=== PATIENT | male | born 2000 | race Two or more races ===

== ENCOUNTER 2025-02-27 21:56 | Emergency (ER) | payer MEDICAID, OTHER ==
[~2025-02-27] VITALS: Ht 175.3 cm; Wt 95.4 kg
[2025-02-27 22:50] VITALS: BP 154/87; PULSE 91; TEMP 98.5
[2025-02-27] MEDS: ALBUTEROL SULF 2.5 MG/0.5ML(0.5%) NEB SOLN NEB ONE (22:50)
[2025-02-27] MEDS: IPRATROPIUM BROM 0.5 MG/2.5ML INH SOL NEB ONE (22:50)
[2025-02-27 23:10] VITALS: RESP 16; O2SAT 95
[2025-02-27] MEDS ORDERED: METH4PAK PO (23:10)
[2025-02-27] MEDS ORDERED: ALBUAER3 IN (23:10)
[2025-02-27] MEDS ORDERED: AZIT-43 PO (23:10)
--- NOTE | 2025-02-27 23:10 | ED.PDOC ---
SOB-HPI HPI Comments PT PRESENTED TO ED FOR ASTHMA REACTION X1 DAY W/O RELIEF FROM INHALER. REPORTS SHORTNESS OF BREATH DENIES DIFFICULTY BREATHING. NOTES NO FEVERS OR CHILLS DOES STATE INCREASE SPITTING UP YELLOW PHLEGM. Chief Complaint: Asthma Time Seen by MD: 22:03 Reviewed notes: Nurses Notes, Medications, Allergies Information Source: Patient Mode of Arrival: Ambulatory Past Medical History PAST MEDICAL HISTORY: Asthma Family History Family History: Unknown Social History Smoker: Non-Smoker Alcohol: Denies ETOH Use Drugs: Denies Drug Use All Other Systems: Reviewed and Negative (SEE HPI) Physical Exam General Appearance: No Apparent Distress, Normal HEENT: Normal ENT Inspection, Pharynx Normal, TMs Normal Neck: Full Range of Motion, Non-Tender Respiratory: Chest Non-Tender, No Accessory Muscle Use, No Respiratory Distress, Wheezing Cardiovascular: No Edema, No JVD, No Murmur, No Gallop, Normal Peripheral Pulses, Regular Rate/Rhythm Breast Exam: Deferred Gastrointestinal: Non Tender, Soft Genitalia: Deferred Pelvic: Deferred Rectal: Deferred Extremities: Normal range of motion, Non-tender Musculoskeletal : Apperance: Normal Neurologic: Alert, No Motor Deficits, Normal Affect, Normal Mood, No Sensory Deficits Cerebellar Function: Normal Reflexes: NOT DONE Skin: Dry, Normal Color, Warm Lymphatic: No Adenopathy Was a procedure done? Was a procedure done?: No Differential Dx Differential Diagnosis: Asthma, Bronchitis, Pneumonia, Allergic Rhinitis, URI X-Ray, Labs, Meds, VS Vital Signs Date Time Temp Pulse Resp B/P (MAP) Pulse Ox O2 Delivery O2 Flow Rate FiO2 02/27/25 23:10 95 Room Air* 0 21 02/27/25 23:10 16 95 Room Air* 0 21 02/27/25 22:50 91 18 95 Room Air 02/27/25 22:50 98.5 91 18 154/87 (109) 95 98.5 02/27/25 21:57 98.4 89 16 139/87 94 98.4 Current Medications Medications (Trade) Dose Ordered Sig/Manny Route Start Time Stop Time Status Last Admin Albuterol (Ventolin Medneb) 5 mg ONCE ONCE NEB 02/27/25 22:15 02/27/25 22:16 DC 02/27/25 22:50 Ipratropium [place] (Atrovent Medneb) 0.5 mg ONCE ONCE NEB 02/27/25 22:15 02/27/25 22:16 DC 02/27/25 22:50 Dexamethasone Sodium Phosphate (Decadron Injection) 10 mg ONCE ONCE IM 02/27/25 22:15 02/27/25 22:16 DC 02/27/25 22:50 X-Ray, Labs, Meds, VS Comment LUNG SOUNDS CLEAR AND EQUAL BILATERAL OFF A BREATHING TREATMENT X1. PATIENT GIVEN DECADRON 10 MG IM. PATIENT STATES HE FEELS BETTER REQUESTING DISCHARGE AT THIS TIME. TRIAL OF MEDROL DOSEPAK, AZITHROMYCIN, A REFILL PATIENT'S ALBUTEROL. ADVISED TO REST INCREASE P.O. FLUIDS WITH ELECTROLYTES. FOLLOW UP WITH YOUR PCP IN 2-3 DAYS NECESSARY. ER RETURN PRECAUTIONS GIVEN PATIENT INDICATES UNDERSTANDING AGREES WITH DISCHARGE PLAN OF CARE. Time of 1ST Reevaluation: 22:03 Reevaluation 1ST: Unchanged Time of 2ND Reevaluation: 23:08 Reevaluation 2ND: Improved Patient Education/Counseling: Diagnosis, Treatment, Need For Follow Up Family Education/Counseling: No Family Present SEPSIS Sepsis Screen Date sepsis recognized/suspect: Feb 27, 2025 Time Sepsis recognized/suspect: 2158 Recent Procedure: No On Antibiotic Therapy: No Respiratory Rate >20: No Heart Rate >90: No Temp<36 C (96.8 F) or >38.3 C: No SBP <90 or MAP <65 mmHG: No New Acute Mental Status Change: No Is the patient on CPAP, BIPAP,: No Physician Orders Med Neb Initial Treatment (02/27/25 22:03) Vital Signs Date Time Temp Pulse Resp B/P (MAP) Pulse Ox O2 Delivery O2 Flow Rate FiO2 02/27/25 23:10 95 Room Air* 0 21 02/27/25 23:10 16 95 Room Air* 0 21 02/27/25 22:50 91 18 95 Room Air 02/27/25 22:50 98.5 91 18 154/87 (109) 95 98.5 02/27/25 21:57 98.4 89 16 139/87 94 98.4 Medications Medications Dose Ordered Sig/Manny Route Start Time Stop Time Status Last Admin Dose Admin Albuterol 5 mg ONCE ONCE NEB 02/27/25 22:15 02/27/25 22:16 DC 02/27/25 22:50 Dexamethasone Sodium Phosphate 10 mg ONCE ONCE IM 02/27/25 22:15 02/27/25 22:16 DC 02/27/25 22:50 Ipratropium [place] 0.5 mg ONCE ONCE NEB 02/27/25 22:15 02/27/25 22:16 DC 02/27/25 22:50 Departure 1 Departure Time of Disposition: 23:08 Impression: Primary Impression: Acute asthma Disposition: HOME / SELF CARE / HOMELESS Condition: Stable e-Prescriptions Azithromycin (Azithromycin) 250 Mg Tab 250 MG PO DAILY MDD 500 for 5 Days, #6 TAB 0 Refills 2 TABLETS ORALLY ON DAY ONE, THEN 1 TABLET ORALLY DAILY FOR 4 DAYS Prov: GIL DAMON 02/27/25 Methylprednisolone (Medrol Dosepak) 4 Mg Wale 4 MG PO UD for 6 Days, #21 TAB UAD Prov: GIL DAMON 02/27/25 Albuterol Sulfate (VENTOLIN MDI) 90 Mcg Ih 180 MCG IN Q6HP PRN for 30 Days, #1 INHALER INHALE 1-2 PUFFS EVERY 4-6 HOURS NEEDED FOR WHEEZING AND SHORTNESS OF BREATH Prov: GIL DAMON 02/27/25 Discharged With: Self Critical Care Note Critical Care Time?: No Stability Stability form required: No Heart Score Heart Score: Heart Score Response (Comments) Value History N/A 0 EKG N/A 0 Age <45 0 Risk Factors N/A 0 Troponin N/A 0 Total 0 GIL DAMON Feb 27, 2025 23:10
== END 2025-02-27 23:29 | disposition home or self-care (01) ==
LOC: ER 21:56
DX: J45.909 Unspecified asthma, uncomplicated (principal)
CPT/HCPCS: 94640; 96372; 99283; J1100